=== PATIENT | male | born 1990 | race Caucasian/White ===

== ENCOUNTER → 2018-12-27 | Outpatient (CLI) | payer OTHER ==
[~2018-12-27] MED LIST: HYDR1CAP2 PO; METH4TAB PO
--- NOTE | 2018-12-27 11:40 | Diagnostic Imaging Report ---
INDICATION: Fall. TIME OF EXAM: 11:28 a.m. The heart size is normal. Lungs are clear. No displaced rib fractures seen. No parenchymal contusion, effusion or pneumothorax is seen. IMPRESSION: No acute abnormality is detected. Dictated by: Dictated on workstation # [id number]
== END ==
LOC: RAD 11:19
PROVIDERS: ATTEND Nurse Practitioner Family
DX: R07.9 Chest pain, unspecified (principal); W19.XXXA Unspecified fall, initial encounter
CPT/HCPCS: 71101